=== PATIENT | male | born 1945 | race Caucasian/White ===

== ENCOUNTER 2018-07-20 01:20 | Emergency (ER) | payer SELFPAY, MEDICARE | END 2018-07-20 02:08 | disposition left against medical advice (07) | LOC: E/R 01:20 | DX: Z53.21 Procedure and treatment not carried out due to patient leaving prior to being seen by health care provider (principal) ==

== ENCOUNTER 2018-07-20 02:52 | Emergency (ER) | payer MEDICARE ==
[2018-07-20] MEDS: HYDROmorphONE 0.5 MG/0.5 ML SYG IV ×2 (04:31→05:56)
== END 2018-07-20 07:09 | disposition home or self-care (01) ==
LOC: E/R 02:52
DX: G89.18 Other acute postprocedural pain (principal); M25.571 Pain in right ankle and joints of right foot; R00.2 Palpitations; I10 Essential (primary) hypertension
CPT/HCPCS: 96374; 96375; 99284-25